=== PATIENT | male | born 1945 | race Caucasian/White ===

== ENCOUNTER → 2020-01-18 | Outpatient (CLI) | payer OTHER ==
[~2020-01-18] MED LIST: ACETAMINOPHEN325 M1 PO; ASPIRIN81 M2 PO; EFFIENT10 MG PO; LIPITOR20 MG PO; LISINOPRIL10 MG PO; NITROQUICK0.4 MG SL
== END ==
LOC: LAB 08:50
PROVIDERS: ATTEND Family Medicine
DX: U07.1 COVID-19 (principal)

== ENCOUNTER → 2020-02-16 | Outpatient (CLI) | payer OTHER, MEDICARE | LOC: RAD 10:08 | PROVIDERS: ATTEND Family Medicine | DX: J98.4 Other disorders of lung (principal); I25.10 Atherosclerotic heart disease of native coronary artery without angina pectoris ==